=== PATIENT | male | born 1970 | race Two or more races ===

== ENCOUNTER 2023-09-09 04:20 | Day surgery (SDC) | payer BC, OTHER ==
[2023-09-01 13:44] VITALS: BMI 29.7
[2023-09-09] MEDS ORDERED: LIDOCAINE HCL 1%, 10 MG/ML (20ML VIAL) ONE (07:57)
[2023-09-09] MEDS ORDERED: LIDOCAINE HCL 1%, 10 MG/ML (20ML VIAL) INF ONE ×3 (09:00→10:38)
[2023-09-09] MEDS ORDERED: BUPIVACAINE HCL/PF 0.5% (5MG/ML) 10 ML VIAL IJ ONE ×4 (09:01→10:38)
[2023-09-09] MEDS ORDERED: FENTANYL CITRATE/PF 50 MCG/ML VIAL ONE (10:14)
[2023-09-09] MEDS ORDERED: PROPOFOL 20 ML ONE (10:14)
[2023-09-09] MEDS ORDERED: SUCCINYLCHOLINE CHLORIDE 200 MG/10 ML SYRINGE ONE (10:14)
[2023-09-09] MEDS ORDERED: ROCURONIUM BROMIDE 50 MG/5 ML SYRINGE ONE (10:14)
[2023-09-09] MEDS ORDERED: ceFAZolin SODIUM 1 GM VIAL IVPB ONE (10:29)
[2023-09-09] MEDS ORDERED: DEXAMETHASONE SOD PHOSPHATE 4 MG/1 ML VIAL ONE (11:25)
[2023-09-09] MEDS ORDERED: ceFAZolin SODIUM 1 GM VIAL ONE ×2 (11:25)
[2023-09-09] MEDS ORDERED: ONDANSETRON 4 MG/2 ML VIAL ONE (11:25)
[2023-09-09] MEDS ORDERED: KETOROLAC TROMETHAMINE 30 MG/1 ML VIAL ONE (11:25)
[2023-09-09] MEDS ORDERED: GLYCOPYRROLATE 0.2 MG/1 ML VIAL ONE ×2 (11:26)
[2023-09-09] MEDS ORDERED: NEOSTIGMINE METHYLSULFATE 0.5 MG/1 ML - 10 ML MDV ONE (11:26)
[2023-09-09] MEDS ORDERED: ONDANSETRON 4 MG/2 ML VIAL IVPUSH PRN (11:48)
[2023-09-09] MEDS ORDERED: oxyCODONE HCL 5 MG TABLET PO PRN (11:48)
[2023-09-09] MEDS ORDERED: LACTATED RINGERS SOLUTION 1,000 ML IV SCH (12:00)
[2023-09-09 13:14] VITALS: RESP 18
[2023-09-09] MEDS ORDERED: oxyCODONE HCL 5 MG TABLET ONE ×2 (13:21→13:32)
[2023-09-09 14:33] VITALS: BP 129/86; PULSE 68; TEMP 98
== END 2023-09-09 14:39 | disposition home or self-care (01) ==
LOC: JASU-SURG 04:20
PROVIDERS: ATTEND Surgery
PROC: 0YU50JZ Supplement Right Inguinal Region with Synthetic Substitute, Open Approach (ICD-10-PCS; principal; 2023-09-09 10:00)
DX: K40.90 Unilateral inguinal hernia, without obstruction or gangrene, not specified as recurrent (principal)
CPT/HCPCS: 88304-TC; 94760; C1781